=== PATIENT | male | born 1935 | race Caucasian/White ===

== ENCOUNTER 2022-10-12 07:36 | Emergency (ER) | payer MEDICARE, OTHER ==
[~2022-10-12] VITALS: Ht 165.1 cm; Wt 67.6 kg
--- NOTE | 2022-10-12 08:02 | NUR ---
Dr [email or web address], medical screening exam in progress
[2022-10-12] MEDS ORDERED: PROP20TA7 PO (08:12)
[2022-10-12] MEDS ORDERED: AMLO-212 PO (08:12)
[2022-10-12] MEDS ORDERED: TERA10CA4 PO (08:12)
[2022-10-12] MEDS ORDERED: [UNRECOGNIZED DRUG - MIXTURE] PO (08:12)
[2022-10-12] MEDS ORDERED: CARB1TAB21 PO (08:12)
[2022-10-12] MEDS ORDERED: DICY20TA11 PO (08:12)
[2022-10-12] MEDS ORDERED: FINA5TAB11 PO (08:12)
[2022-10-12] MEDS ORDERED: MECL-159 PO (08:12)
[2022-10-12] MEDS ORDERED: LEVO25TA9 PO (08:12)
[2022-10-12] MEDS ORDERED: GABA300C PO (08:12)
[2022-10-12 08:14] LABS: *BILIRUBIN,URIN NEGATIVE (NEGATIVE); *BLOOD, URINE NEGATIVE (NEGATIVE); *CLARITY,URINE CLEAR (CLEAR); *COLOR,URINE YELLOW (YELLOW); *KETONES,URINE NEGATIVE (NEGATIVE); *UROBILINOGEN,URINE 0.2 E.U./dl (NORMAL); LEUKOCYTE ESTERASE ,URINE NEGATIVE (NEGATIVE); NITRITE, URINE NEGATIVE (NEGATIVE); UGLUCOSE NEGATIVE (NEGATIVE)
[2022-10-12 08:25] LABS: MEAN CORPUSCULAR HEMOGLOBIN 29.9 uug (23.8-33.4); MEAN CORPUSCULAR VOLUME 89.6 fL (73.0-96.2); PLATELET COUNT (AUTO) 195 K/uL (152-348)
[2022-10-12 09:21] LABS: POTASSIUM 3.9 mmol/L (3.5-5.1)
[2022-10-12 09:33] LABS: BILIRUBIN,DIRECT 0.2 mg/dL (0.0-0.2); BILIRUBIN,TOTAL 0.8 mg/dL (0.2-1.0); TOTAL PROTEIN, SERUM 7.5 g/dL (6.4-8.2)
[2022-10-12] MEDS ORDERED: ACETAMINOPHEN 325 MG TABLET PO ONE (10:00)
[2022-10-12] MEDS ORDERED: ACETAMINOPHEN 325 MG TABLET ONE (10:03)
--- NOTE | 2022-10-12 10:24 | NUR ---
Patient discharged to home by Dr Rosado in stable condition. Written and verbal after care instructions given to patient and patient's adult daughter who speaks fluent [place]ri[place]. Patient and family verbalized understanding and complaince of instructions. Stressed follow up with primary doctor, GI specialist and fire sprinkler service technician or return to ER for worsening s/s.
== END 2022-10-12 10:26 | disposition home or self-care (01) ==
LOC: ER 07:43
DX: R10.12 Left upper quadrant pain (principal); R10.32 Left lower quadrant pain; Z90.49 Acquired absence of other specified parts of digestive tract; Z79.899 Other long term (current) drug therapy
CPT/HCPCS: 36415; 83690; 85025; 93005; A4663

== ENCOUNTER 2022-11-04 14:57 | Emergency (ER) | payer MEDICARE, OTHER ==
[~2022-11-04] VITALS: Ht 165.1 cm; Wt 67.6 kg
[~2022-11-04 14:57] MED LIST: AMLO-212 PO; CARB1TAB21 PO; DICY20TA11 PO; FINA5TAB11 PO; GABA300C PO; LEVO25TA9 PO; MECL-159 PO; PROP20TA7 PO; TERA10CA4 PO; [UNRECOGNIZED DRUG - MIXTURE] PO
--- NOTE | 2022-11-04 15:14 | NUR ---
Patient ambulated to room from home with c/o loud noises in his ears, no s/s of any distress noted, Informed of plan of care, awaiting MD exam, will continue to monitor.
--- NOTE | 2022-11-04 15:16 | NUR ---
Patient requesting for family to come to room, advised to wait for MD exam.
--- NOTE | 2022-11-04 15:19 | NUR ---
at bedside for exam.
[2022-11-04] MEDS ORDERED: IV NORMAL SALINE 1000 ML BAG IV ONE (15:30)
--- NOTE | 2022-11-04 15:38 | NUR ---
Off unit via wheelchair to CT.
[2022-11-04 15:46] LABS: HEMATOCRIT 38.9 % (36.7-47.1); MEAN CORPUSCULAR HEMOGLOBIN 29.9 uug (23.8-33.4); MEAN CORPUSCULAR VOLUME 89.4 fL (73.0-96.2); PLATELET COUNT (AUTO) 253 K/uL (152-348)
--- NOTE | 2022-11-04 15:59 | NUR ---
PATIENT REFUSED IV START.
[2022-11-04 16:20] LABS: CARBON DIOXIDE 25 mmol/L (21-32); CHLORIDE 104 mmol/L (98-107); CREATININE 1.2 mg/dL (0.6-1.3); GLUCOSE 124 mg/dL (74-106); POTASSIUM 3.9 mmol/L (3.5-5.1); UREA NITROGEN, BLOOD 7 mg/dL (7-18)
--- NOTE | 2022-11-04 16:27 | NUR ---
Patient sitting up at bedside, awaiting results.
--- NOTE | 2022-11-04 16:45 | NUR ---
FAMILY MEMBER AT BEDSIDE, UPDATED ON PLAN OF CARE.
--- NOTE | 2022-11-04 17:01 | NUR ---
REQUESTING WATER, GIVEN.
--- NOTE | 2022-11-04 17:38 | NUR ---
ACI GIVEN, REMAINS STABLE FOR DISCHARGE HOME WITH FMILY.
[2022-11-04 17:39] VITALS: BP 129/73
== END 2022-11-04 17:41 | disposition home or self-care (01) ==
LOC: ER 14:57
DX: H93.12 Tinnitus, left ear (principal); E03.9 Hypothyroidism, unspecified; R51.9 Headache, unspecified; Z90.49 Acquired absence of other specified parts of digestive tract; Z79.899 Other long term (current) drug therapy
CPT/HCPCS: 36415; 70450; 84443; 85025; 93005; A4663

== ENCOUNTER 2023-10-26 10:14 | Emergency (ER) | payer MEDICARE, OTHER ==
[~2023-10-26] VITALS: Ht 5029.2 cm; Wt 65.8 kg
[2023-10-26] MEDS ORDERED: HYDROCODONE/APAP 5-325MG TABLET ONE (10:50)
[2023-10-26] MEDS: HYDROCODONE/APAP 5-325MG TABLET PO ONE (10:52)
[2023-10-26 11:19] VITALS: BP 133/70; TEMP 98; O2SAT 99
[2023-10-26] MEDS ORDERED: OXYC-128 PO (11:23)
== END 2023-10-26 11:26 | disposition home or self-care (01) ==
LOC: ER 10:20
DX: S20.211A Contusion of right front wall of thorax, initial encounter (principal); I25.10 Atherosclerotic heart disease of native coronary artery without angina pectoris; N40.0 Benign prostatic hyperplasia without lower urinary tract symptoms; Z90.49 Acquired absence of other specified parts of digestive tract; Z79.899 Other long term (current) drug therapy; Z60.2 Problems related to living alone; W18.39XA Other fall on same level, initial encounter; Y93.89 Activity, other specified; Y92.89 Other specified places as the place of occurrence of the external cause; Y99.8 Other external cause status
CPT/HCPCS: 71045; A4606; A4663